=== PATIENT | female | born 1990 | race Two or more races ===

== ENCOUNTER 2017-12-18 10:06 | Emergency (ER) | payer OTHER ==
[2017-12-18 10:41] VITALS: BP 120/75; TEMP 98.3; BMI 21.0
[2017-12-18 11:33] LABS: BASO % 0.7 % (0-2.0); EOS % 3.6 % (0-4.5); HEMATOCRIT 45.1 % (32.4-45.2); HEMOGLOBIN 14.7 GM/dL (10.7-15.3); MCH 26.7 pg (25.7-33.7); MCHC 32.6 g/dl (32.0-36.0); MEAN CELL VOLUME 81.9 fl (80-96); MEAN PLT VOLUME 8.1 fl (7.5-11.1); MONO % 9.4 % (3.8-10.2); NEUT % 70.3 % (42.8-82.8); PLATELET COUNT 270 K/MM3 (134-434); RBC 5.51 M/mm3 (3.60-5.2); RDW 15.3 % (11.6-15.6); URINE APPEARANCE CLEAR; URINE BILIRUBIN NEGATIVE (NEGATIVE); URINE BLOOD NEGATIVE (NEGATIVE); URINE COLOR STRAW; URINE GLUCOSE (UA) NEGATIVE (NEGATIVE); URINE KETONE NEGATIVE (NEGATIVE); URINE LEUK ESTERASE TRACE (NEGATIVE); URINE NITRITE NEGATIVE (NEGATIVE); URINE PROTEIN NEGATIVE (NEGATIVE); URINE UROBILINOGEN NEGATIVE mg/dL (0.2-1.0); WHITE BLOOD COUNT 10.6 K/mm3 (4.0-10.0)
[2017-12-18 11:36] LABS: EPI CELLS RARE /HPF (FEW); URINE BACTERIA RARE /hpf (NONE SEEN); URINE MUCUS RARE
--- NOTE | 2017-12-18 11:45 | PDOC ---
History of Present Illness - General Chief Complaint: Pain, Acute Stated Complaint: BACK PAIN Time Seen by Provider: 12/18/17 11:14 History Source: Patient - History of Present Illness Timing/Duration: reports: constant Quality: reports: cramping Abdominal Pain Onset Location: reports: flank Past History - Past Medical History Allergies/Adverse Reactions: Allergies Allergy/AdvReac Type Severity Reaction Status Date / Time No Known Allergies Allergy Verified 12/18/17 10:38 Home Medications: Ambulatory Orders NK [No Known Home Medication] 12/18/17 Asthma: Yes COPD: No - Reproductive History Cervical CA: No Dysfunctional Uterine Bleeding: No Ectopic : No Endometrial CA: No Polycystic Ovaries: No Therapeutic (s) & number: No Tubal Ligation: No - Suicide/Smoking/Psychosocial Hx Smoking History: Never smoked Review of Systems - Review of Systems Constitutional: No: Chills, Fever ABD/GI: Yes: Abdominal cramping. No: Diarrhea, Nausea, Vomiting : Yes: Flank Pain. No: Dysuria, Discharge, Hematuria *Physical Exam - Vital Signs Last Vital Signs Temp Pulse Resp BP Pulse Ox 98.3 F 104 H 19 120/75 100 12/18/17 10:39 12/18/17 10:39 12/18/17 10:39 12/18/17 10:39 12/18/17 10:39 - Physical Exam General Appearance: Yes: Appropriately Dressed. No: Apparent Distress HEENT: positive: Normal Voice Neck: positive: Supple Respiratory/Chest: negative: Respiratory Distress Gastrointestinal/Abdominal: positive: Normal Bowel Sounds, Tender (over L suprapubic region, no CVAT, NT over appy), Soft. negative: Distended, Guarding Musculoskeletal: positive: Normal Inspection. negative: CVA Tenderness Integumentary: positive: Warm Neurologic: positive: Fully Oriented, Alert, Normal Mood/Affect ED Treatment Course - LABORATORY CBC & Chemistry Diagram: 12/18/17 11:17 12/18/17 11:17 Medical Decision Making - Medical Decision Making 12/18/17 11:27 27-year-old female, no significant history, 0, is and currently attempting to conceive, missed period this month and here with left lower back pain radiating to L groin x 2 days. No vaginal bleeding currently. No nausea, vomiting, dysuria, abnormal vaginal discharge, fever or chills. Was seen by her PMD this a.m. and referred to the ED. For unclear reasons, patient did not check home test. See exam L flank pain No infectious sxs No h/o stone Missed menses this month -upreg -labs -?US 12/18/17 12:01 + test, beta pending. Per LMP, pt currently ~5 weeks 5 days. Will get US 12/18/17 13:36 +IUP with heart rate. Beta ~ 9000. No sign of infection on UA. Patient better with Tylenol. Stable for discharge to follow up with OB 12/18/17 14:07 *DC/Admit/Observation/Transfer Diagnosis at time of Disposition: Qualifiers: Weeks of gestation: less than 8 weeks Qualified Code(s): Z3A.01 - Less than 8 weeks gestation of - Discharge Dispostion Disposition: HOME Condition at time of disposition: Good - Referrals Referrals: Aaron Chu MD [Staff Physician] - - Patient Instructions Printed Discharge Instructions: Managing Symptoms of Additional Instructions: You were found to be today with an intrauterine consistent with approximately 5 weeks 6 days with a heart rate detected. Your beta was 9025 today and your urine showed no signs of infection Please follow up with Dr Chu of [facility] - Post Discharge Activity
[2017-12-18] MEDS ORDERED: ACETAMINOPHEN 325 MG TABLET (FP) PO ONE (11:50)
[2017-12-18] MEDS ORDERED: ACETAMINOPHEN 325 MG TABLET (FP) ONE (11:59)
[2017-12-18 12:12] LABS: ALBUMIN 3.7 g/dl (3.4-5.0); ANION GAP 12 (8-16); BILIRUBIN,TOTAL 0.4 mg/dL (0.2-1.0); BLOOD UREA NITROGEN 7 mg/dL (7-18); CALCIUM 9.5 mg/dL (8.5-10.1); CHLORIDE 104 mmol/L (98-107); CO2 23 mmol/L (21-32); CREATININE 0.6 mg/dL (0.55-1.02); GLUCOSE,RANDOM 91 mg/dL (74-106); LIPASE 125 U/L (73-393); POTASSIUM 3.9 mmol/L (3.5-5.1); SGOT/AST 17 U/L (15-37); SGPT/ALT 33 U/L (12-78); SODIUM 139 mmol/L (136-145); TOT PROT 7.5 g/dl (6.4-8.2)
[2017-12-18 12:28] LABS: ALK PHOS 76 U/L (45-117)
[2017-12-18 14:06] VITALS: PULSE 96
== END 2017-12-18 14:06 | disposition home or self-care (01) ==
LOC: JER 10:06
DX: O26.891 Other specified pregnancy related conditions, first trimester (principal); Z3A.01 Less than 8 weeks gestation of pregnancy
CPT/HCPCS: 36415; 76817-TC; 80053; 81003; 81015; 83690; 84702; 84703; 85025; 87086; 87491; 87591; 99283-25

== ENCOUNTER 2021-03-02 10:46 | Emergency (ER) | payer OTHER ==
[2021-03-02 10:56] VITALS: BMI 27.3
[2021-03-02] MEDS ORDERED: ACETAMINOPHEN 500 MG TABLET (FP) PO ONE (11:55)
[2021-03-02] MEDS ORDERED: ALBUTEROL SO4 2.5/IPRATROPIUM 0.5 INH SOL 3 ML VIAL.NEB. NEB ONE ×2 (11:55→12:17)
[2021-03-02] MEDS ORDERED: ACETAMINOPHEN 325 MG TABLET (FP) ONE (12:17)
[2021-03-02 14:02] VITALS: BP 109/68; PULSE 108
[2021-03-02 14:31] VITALS: TEMP 98.4
== END 2021-03-02 14:56 | disposition home or self-care (01) ==
LOC: JER 10:46
PROC: 3E0F7GC Introduction of Other Therapeutic Substance into Respiratory Tract, Via Natural or Artificial Opening (ICD-10-PCS; principal; 2021-03-02)
PROC: 3E03329 Introduction of Other Anti-infective into Peripheral Vein, Percutaneous Approach (ICD-10-PCS; 2021-03-02)
PROC: 3E0337Z Introduction of Electrolytic and Water Balance Substance into Peripheral Vein, Percutaneous Approach (ICD-10-PCS; 2021-03-02)
DX: J02.9 Acute pharyngitis, unspecified (principal); J40 Bronchitis, not specified as acute or chronic
CPT/HCPCS: 71046-TC-FY; 87880; 93005; 93010; 99285-25; C9803; U0003; U0005

== ENCOUNTER 2021-03-02 17:09 | Emergency (ER) | payer OTHER ==
[2021-03-02] MEDS ORDERED: BAMLANIVIMAB 700 MG, ETESEVIMAB 1,400 MG in SODIUM CHLORIDE 250 ML IVPB ONE (17:26)
[2021-03-02 17:45] VITALS: TEMP 98.3; BMI 27.3
[2021-03-02] MEDS ORDERED: SODIUM CHLORIDE 1,000 ML IV STA (18:02)
[2021-03-02 18:37] LABS: BASO % 0.4 % (0-2.0); EOS % 0.7 % (0-4.5); HEMATOCRIT 42.1 % (32.4-45.2); HEMOGLOBIN 14.2 GM/dL (10.7-15.3); LYMPH % 11.6 % (8-40); MCH 27.6 pg (25.7-33.7); MCHC 33.7 g/dl (32.0-36.0); MEAN PLT VOLUME 9.1 fl (7.5-11.1); MONO % 8.2 % (3.8-10.2); NEUT % 79.1 % (42.8-82.8); PLATELET COUNT 267 K/MM3 (134-434); RBC 5.13 M/mm3 (3.60-5.2); WHITE BLOOD COUNT 11.2 K/mm3 (4.0-10.0)
[2021-03-02 18:53] LABS: CALCIUM 9.2 mg/dL (8.5-10.1)
[2021-03-02 18:54] LABS: BLOOD UREA NITROGEN 6.6 mg/dL (7-18)
[2021-03-02 18:57] LABS: CREATININE 0.6 mg/dL (0.55-1.3)
[2021-03-02 18:59] LABS: BILIRUBIN,TOTAL 0.4 mg/dL (0.2-1); TOT PROT 7.6 g/dl (6.4-8.2)
[2021-03-02] MEDS ORDERED: ACETAMINOPHEN 500 MG TABLET (FP) PO ONE (19:17)
[2021-03-02] MEDS ORDERED: ACETAMINOPHEN 500 MG TABLET (FP) ONE (19:43)
[2021-03-02 21:25] VITALS: BP 110/76
[2021-03-02 21:39] VITALS: PULSE 99
== END 2021-03-02 21:40 | disposition home or self-care (01) ==
LOC: JER 17:09
PROC: 3E0F7GC Introduction of Other Therapeutic Substance into Respiratory Tract, Via Natural or Artificial Opening (ICD-10-PCS; principal; 2021-03-02)
PROC: 3E03329 Introduction of Other Anti-infective into Peripheral Vein, Percutaneous Approach (ICD-10-PCS; 2021-03-02)
PROC: 3E0337Z Introduction of Electrolytic and Water Balance Substance into Peripheral Vein, Percutaneous Approach (ICD-10-PCS; 2021-03-02)
DX: U07.1 COVID-19 (principal)
CPT/HCPCS: 36415; 80053; 84703; 85025; 99285-25; M0239; Q0239; Q0245

== ENCOUNTER 2021-03-03 23:12 | Emergency (ER) | payer OTHER ==
[2021-03-03 23:37] VITALS: TEMP 98; BMI 27.3
[2021-03-04 01:32] LABS: HEMATOCRIT 41.2 % (32.4-45.2); HEMOGLOBIN 13.8 GM/dL (10.7-15.3); MCH 27.7 pg (25.7-33.7); MCHC 33.4 g/dl (32.0-36.0); MEAN CELL VOLUME 82.9 fl (80-96); MEAN PLT VOLUME 9.1 fl (7.5-11.1); PLATELET COUNT 247 K/MM3 (134-434); RBC 4.97 M/mm3 (3.60-5.2)
[2021-03-04 01:52] LABS: ALBUMIN 3.7 g/dl (3.4-5.0); CALCIUM 8.8 mg/dL (8.5-10.1)
[2021-03-04 01:56] LABS: CREATININE 0.7 mg/dL (0.55-1.3)
[2021-03-04 01:57] LABS: TOT PROT 7.4 g/dl (6.4-8.2)
[2021-03-04 02:05] LABS: BILIRUBIN,TOTAL 0.2 mg/dL (0.2-1)
[2021-03-04 05:24] VITALS: BP 106/72; PULSE 93
== END 2021-03-04 05:26 | disposition home or self-care (01) ==
LOC: JER 23:12
DX: U07.1 COVID-19 (principal)
CPT/HCPCS: 36415; 71275-TC; 80053; 84703; 85027; 85379; 99284-25; Q9967